=== PATIENT | male | born 1980 | race Caucasian/White ===

== ENCOUNTER 2025-04-10 17:07 | Emergency (ER) | payer OTHER, SELFPAY ==
--- NOTE | ~2025-04-10 | CT_ITS ---
EXAMINATION: CT lumbar spine wo con DATE: 04/10/2025 21:42 INDICATION: Chronic low back pain. No mention of trauma. TECHNIQUE: Computed tomography (CT) of the lumbar spine was performed without intravenous contrast. Automated exposure control and iterative reconstruction technique were employed. The dose-length product was 518.76 mGy-cm. COMPARISON: MRI lumbar spine dated 10/07/2014. FINDINGS: No acute bony lesions of lumbar vertebrae. At L3-4 level, degenerative disc disease and facet arthropathy are causing moderately significant compromise of both lateral recesses and neural foramina and compromise of thecal sac with AP diameter in the midline measuring 8 mm. At L4-5 level, severe degenerative disc disease is noted with bulging annulus and possible focal disc bulge or protrusion to the right of the midline. Significant compromise of right lateral recess and neural foramen. Significant by foraminal stenosis due to degenerative disc changes and facet arthropathy. Paravertebral soft tissues are unremarkable. IMPRESSION: 1. No acute bony lesions of lumbar vertebrae. 2.At L3-4 level, degenerative disc disease and facet arthropathy are causing moderately significant compromise of both lateral recesses and neural foramina and compromise of thecal sac with AP diameter in the midline measuring 8 mm. 3. At L4-5 level, severe degenerative disc disease is noted with bulging annulus and possible focal disc bulge or protrusion to the right of the midline. Significant compromise of right lateral recess and neural foramen. Significant by foraminal stenosis due to degenerative disc changes and facet arthropathy. 4. If symptoms are persistent and not responding to conservative treatment, MRI is indicated, if there are no contraindications for MRI. Reviewed, dictated and finalized at location T. OBIOLOGY DIRECTOR IMPRESSION: 1. No acute bony lesions of lumbar vertebrae. 2.At L3-4 level, degenerative disc disease and facet arthropathy are causing mo derately significant compromise of both lateral recesses and neural foramina an d compromise of thecal sac with AP diameter in the midline measuring 8 mm. 3. At L4-5 level, severe degenerative disc disease is noted with bulging annulu s and possible focal disc bulge or protrusion to the right of the midline. Sign ificant compromise of right lateral recess and neural foramen. Significant by f oraminal stenosis due to degenerative disc changes and facet arthropathy. 4. If symptoms are persistent and not responding to conservative treatment, MRI is indicated, if there are no contraindications for MRI.
[2025-04-10 17:57] VITALS: BP 135/71; PULSE 94; RESP 20; TEMP 36.7; O2SAT 97
--- NOTE | 2025-04-10 21:18 | ED.BACK ---
HPI - Back Pain/Injury General Chief Complaint: Back Pain/Injury Stated Complaint: lower back pain Time Seen by Provider: 04/10/25 21:09 Source: patient Mode of arrival: ambulatory Limitations: no limitations History of Present Illness HPI Narrative: This is a 44-year-old male that presents to the emergency department for low back pain. Ongoing over the last month. Also reports he has had new urinary incontinence. Pain is worse with movement and relieved with rest. No recent injuries or trauma. Denies saddle anesthesia or bowel incontinence. Related Data Allergies Allergy/AdvReac Type Severity Reaction Status Date / Time Sulfa (Sulfonamide Allergy Mild BLISTERS Verified 01/10/18 20:55 Antibiotics) sertraline Allergy Unknown Verified 01/10/18 20:55 BUPROPION HCL Allergy Unknown Uncoded 01/10/18 20:55 Review of Systems Review of Systems: All systems reviewed & are unremarkable except as noted in HPI and below PMFSH Past Medical History Medical History (Updated 04/10/25 @ 23:15 by Rhona Barnett PA-C) Hyperlipidemia Exam Narrative: GENERAL: Well-appearing, well-nourished, and in no acute distress. HEAD: Normocephalic, atraumatic. EYES: EOMI. CHEST: Clear to auscultation. No respiratory distress. No wheezes rales or rhonchi HEART: Regular rate and rhythm. No murmur heard. Normal peripheral pulses. ABDOMEN: Soft, nontender, nondistended, normal active bowel sounds. EXTREMITIES: Normal range of motion. No edema. Strength equal in bilateral lower extremities (5/5) SKIN: Warm, dry, no rash. NEURO: No focal deficits. Alert and oriented x3. PSYCH: Normal mood and affect Course Consultations Neurosurgery: Time of Consult: 23:00 I have discussed the care of this patient with the following provider: Dr. Brown. Will start steroid taper, muscle relaxer, follow up outpatient Vital Signs Vital signs: Vital Signs Temperature 98.1 F 04/10/25 17:57 Pulse Rate 94 04/10/25 17:57 Respiratory Rate 20 04/10/25 17:57 Blood Pressure 135/71 04/10/25 17:57 Pulse Oximetry 97 04/10/25 17:57 Oxygen Delivery Room Air 04/10/25 17:57 Temperature 98.1 F 04/10/25 17:57 Pulse Rate 94 04/10/25 17:57 Respiratory Rate 20 04/10/25 17:57 Blood Pressure 135/71 04/10/25 17:57 Pulse Oximetry 97 04/10/25 17:57 Oxygen Delivery Room Air 04/10/25 17:57 [facility] Narrative Medical decision making narrative: Patient presents to the emergency department for low back pain. Ongoing over the last month. No known injury or trauma. He does have great strength in his lower extremities. Normal gait. He denies any saddle anesthesia or bowel incontinence. He is endorsing some bladder incontinence, largely with stress. Reports this has been ongoing over the last month as well. Urine without evidence of infection. Bladder scan without evidence urinary retention. CT lumbar spine without acute bony lesions of the lumbar vertebrae. Showing significant degenerative changes at L3/4, L4/5. Case was discussed with Neurosurgery. Will start steroid taper, muscle relaxer. Follow-up with PCP as well as neurosurgery outpatient for further evaluation/management Differential Diagnosis Differential Diagnosis: Lumbar radiculopathy, sciatica, degenerative disc disease Lab Data [facility] Lab Attestation statement: I personally reviewed the patient's lab results. Labs: Lab Results 04/10/25 Range/Units 22:26 Urine Color Yellow (Yellow) Urine Appearance Clear (Clear) Urine pH 6.0 (5.0-9.0) Ur Specific Roberts 1.008 (1.001-1.035) Urine Protein Negative (Negative) mg/dL Urine Glucose (UA) Negative (Negative) mg/dL Urine Ketones Negative (Negative) mg/dL Ur Blood (Man) Negative (Negative) Urine Nitrate Negative (Negative) Urine Bilirubin Negative (Negative) Urine Urobilinogen 1.0 (<2.0) mg/dL Leukocyte Esterase Rfl Negative (Negative) JOSE M/UL Imaging Data Radiologist's impression: ITS Impressions Lumbar Spine CT 04/10/25 21:43 IMPRESSION: 1. No acute bony lesions of lumbar vertebrae. 2.At L3-4 level, degenerative disc disease and facet arthropathy are causing moderately significant compromise of both lateral recesses and neural foramina and compromise of thecal sac with AP diameter in the midline measuring 8 mm. 3. At L4-5 level, severe degenerative disc disease is noted with bulging annulus and possible focal disc bulge or protrusion to the right of the midline. Significant compromise of right lateral recess and neural foramen. Significant by foraminal stenosis due to degenerative disc changes and facet arthropathy. 4. If symptoms are persistent and not responding to conservative treatment, MRI is indicated, if there are no contraindications for MRI. Critical Care Time Critical Care Time Critical Care Time: No Discharge Plan Discharge Clinical Impression: Degenerative disc disease Qualifiers: Spinal region: lumbosacral Disc-related pain type: discogenic back pain only Qualified Code(s): M51.370 - Other intervertebral disc degeneration, lumbosacral region with discogenic back pain only Low back pain Qualifiers: Chronicity: acute Back pain laterality: bilateral Sciatica presence: without sciatica Qualified Code(s): M54.50 - Low back pain, unspecified Patient Disposition: Home Condition: Stable Instructions: Acute Low Back Pain (ED) Additional Instructions: Return to the ER if you experience weakness in your legs, numbness in your groin, bowel incontinence, or any other symptoms that are concerning to you Rest, use ice/heat, take anti-inflammatories (Aleve, Ibuprofen, Naproxen, etc) or Tylenol as needed for pain as well as muscle relaxer (Flexeril) as needed for pain. Muscle relaxers can make you drowsy, do not drive if you take this. Take steroid taper as prescribed. Lidocaine patches as needed Follow up with your primary care doctor and neurosurgery Patient Language: Turkmen Prescriptions: New methylprednisolone 4 mg tablets,dose pack See Rx Instructions .ROUTE .COMPLEX Qty: 21 0RF Rx Instructions: orally per package directions cyclobenzaprine 10 mg tablet 10 mg PO TID PRN (Reason: muscle spasm) Qty: 14 0RF lidocaine 5 % adhesive patch,medicated 1 patch topical DAILY Qty: 15 0RF Rx Instructions: leave on most painful area for up to 12 hrs Follow-up/Referrals: Francisco,Naseem Everett MD [Primary Care Provider, Unknown] Donnie Brown MD [Physician, Neurosurgery]
[2025-04-10] MEDS: KETOROLAC 30 MG/ML VIAL (*BKC) IM (21:28)
[2025-04-10] MEDS: ACETAMINOPHEN 500 MG TABLET 1000 MG PO (21:29)
[2025-04-10] MEDS: LIDOCAINE 5% PATCH 1 PATCH TRANSDERM (21:29)
[2025-04-10 22:33] LABS: Add Urine Microscopic? NO; Appearance Urine Clear (Clear); Glucose Urine UA Negative (Negative); Leukocyte Esterase Ur Negative LEU/UL (Negative); Nitrate Urine Negative (Negative); Specific Grav Ur 1.008 (1.001-1.035)
[2025-04-10 23:49] VITALS: BP 142/78; RESP 20; O2SAT 98
== END 2025-04-10 23:51 | disposition home or self-care (01) ==
PROVIDERS: Emergency Provider Physician Assistant; PCP Internal Medicine
DX: M51.370 Other intervertebral disc degeneration, lumbosacral region with discogenic back pain only (principal); E78.5 Hyperlipidemia, unspecified
CPT/HCPCS: 72131; 81003; 96372; 99284; A9270; J1885